=== PATIENT | male | born 1985 | race Caucasian/White ===

== ENCOUNTER 2021-12-27 12:18 | Emergency (ER) | payer BC ==
[2021-12-27 12:39] VITALS: BP 128/71; PULSE 86; RESP 20; TEMP 97.8
--- NOTE | 2021-12-27 13:48 | ED ---
URI HPI - General Chief Complaint: Upper Respiratory Infection Stated Complaint: sinus pressure Time Seen by Provider: 12/27/21 13:43 Source: patient, RN notes reviewed Mode of arrival: ambulatory Limitations: no limitations - History of Present Illness Initial Comments: 36-year-old male presents emergency department chief complaint of cough congestion. Patient has severe sinus pressure, headache. Patient is a recurrent issue with sinuses. Patient denies any known fever minimal cough just with postnasal drainage. No shortness breath no abdominal pain patient offers no complaints. - Related Data Previous Rx's Medication Instructions Recorded Amoxicillin/Potassium Clav 1 tab PO Q12HR #20 tab 12/27/21 [Augmentin 875-125 Tablet] Allergies Allergy/AdvReac Type Severity Reaction Status Date / Time No Known Allergies Allergy Verified 12/27/21 12:36 Review of Systems ROS Statement: Those systems with pertinent positive or pertinent negative responses have been documented in the HPI. ROS Other: All systems not noted in ROS Statement are negative. Past Medical History Past Medical History: No Reported History History of Any Multi-Drug Resistant Organisms: None Reported Past Surgical History: No Surgical Hx Reported Past Psychological History: No Psychological Hx Reported Smoking Status: Current every day smoker Past Alcohol Use History: Occasional Past Drug Use History: None Reported General Exam Limitations: no limitations General appearance: alert, in no apparent distress Head exam: Present: atraumatic, normocephalic, normal inspection Eye exam: Present: normal appearance, PERRL, EOMI. Absent: scleral icterus, conjunctival injection, periorbital swelling ENT exam: Present: normal exam, normal oropharynx, mucous membranes moist Neck exam: Present: normal inspection, full ROM. Absent: tenderness, meningismus, lymphadenopathy Respiratory exam: Present: normal lung sounds bilaterally. Absent: respiratory distress, wheezes, rales, rhonchi, stridor Cardiovascular Exam: Present: regular rate, normal rhythm, normal heart sounds. Absent: systolic murmur, diastolic murmur, rubs, gallop, clicks Course Vital Signs 12/27/21 12:36 Temperature 97.8 F Pulse Rate 86 Respiratory 20 Rate Blood Pressure 128/71 O2 Sat by Pulse 98 Oximetry Medical Decision Making - Medical Decision Making Patient is negative covid 19. Patient has been sick for over one week which he will be treated for acute sinusitis return parameters were discussed. - Lab Data Lab Results 02/01/22 Range/Units 12:41 Coronavirus (PCR) Not Detected (Not Detectd) Disposition Clinical Impression: Sinusitis Disposition: HOME SELF-CARE Condition: Stable Instructions (If sedation given, give patient instructions): Sinusitis (ED) Additional Instructions: Please return to the Emergency Department if symptoms worsen or any other concerns. Prescriptions: Amoxicillin/Potassium Clav [Augmentin 875-125 Tablet] 1 tab PO Q12HR #20 tab Is patient prescribed a controlled substance at d/c from ED?: No Referrals: None,Stated [Primary Care Provider] - 1-2 days Time of Disposition: 13:48
== END 2021-12-27 13:58 | disposition home or self-care (01) ==
LOC: EC 12:18
DX: J32.9 Chronic sinusitis, unspecified (principal); Z20.822 Contact with and (suspected) exposure to COVID-19; F17.200 Nicotine dependence, unspecified, uncomplicated; Z72.89 Other problems related to lifestyle
CPT/HCPCS: 87635; 99284

== ENCOUNTER 2023-03-29 13:46 | Emergency (ER) | payer OTHER ==
[2023-03-29] MEDS ORDERED: KETOROLAC 15 MG/ML 1 ML VIAL IM STA (15:46)
[2023-03-29] MEDS ORDERED: diazePAM 5 MG TAB PO STA (15:46)
[2023-03-29] MEDS ORDERED: Acetaminophen-Codeine 300-30mg TAB PO STA (15:46)
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
--- NOTE | 2023-03-29 16:32 | XR ---
EXAMINATION TYPE: XR lumbar spine 2 or 3V DATE OF EXAM: 03/29/2023 4:20 PM INDICATION: Patient age:Male; 37 years old; Reason for study: pain; COMPARISON: None TECHNIQUE: Frontal, lateral and coned in L5-S1 lateral views of the spine. FINDINGS: No evidence of any acute osseous pathology. No evidence of loss of vertebral body height i s seen. There is normal alignment of the lumbar vertebral bodies. Mild osteophyte formation throughou t the spine. Mild disc space narrowing. Scattered subcutaneous calcific densities are present over th e subcutaneous tissues of the lumbar spine. IMPRESSION: 1. No acute fracture. 2. Mild multilevel disc degeneration.
[2023-03-29 17:00] VITALS: RESP 16
[2023-03-29] MEDS ORDERED: ACET/COD 300 MG/30 MG STARTER PACK 6 TAB BTL PO STA (17:08)
[2023-03-29] MEDS ORDERED: CYCLOBENZAPRINE 10MG STARTER 3 TAB BTL PO STA (17:08)
[2023-03-29] MEDS ORDERED: IBUPROFEN 600 MG STARTER PACK 4 TAB BTL PO STA (17:08)
[2023-03-29 17:56] VITALS: BP 112/72; PULSE 66; TEMP 98.4
== END 2023-03-29 17:55 | disposition home or self-care (01) ==
LOC: EC 13:46
DX: S39.012A Strain of muscle, fascia and tendon of lower back, initial encounter (principal); F17.200 Nicotine dependence, unspecified, uncomplicated; X50.0XXA Overexertion from strenuous movement or load, initial encounter
CPT/HCPCS: 72100; 99283; 96372; J1885